=== PATIENT | female | born 1970 | race American Indian/Alaskan Native ===

== ENCOUNTER 2017-04-26 23:36 | Emergency (ER) | payer SELFPAY ==
[2017-04-26 23:41] VITALS: BMI 18.4
[2017-04-26 23:43] VITALS: BP 105/69; TEMP 99.3
[2017-04-26 23:47] VITALS: PULSE 84; RESP 17; O2SAT 95
--- NOTE | 2017-04-27 00:16 | ED PDOC ---
Arrival/HPI - General Historian: Patient <Saira Bustos - Last Filed: 04/27/17 00:33> <Jason Taylor - Last Filed: 04/27/17 00:49> - General Chief Complaint: Finger,Hand,&Wrist Time Seen by Provider: 04/27/17 00:06 - History of Present Illness Narrative History of Present Illness (Text): 04/27/17 00:11 46yo female present with complaint of pain to her left 2nd MCP. States she is on methadone and was sleepy, while sitting on a toilet seat this morning, and fell while standing up. states she tried to break her fall, by placing her left hand on the floor. She did not take any medication for the pain. denies any other complaint. (Saira Bustos) Past Medical History - Provider Review Nursing Documentation Reviewed: Yes - Reproductive Currently : No - Cardiac Hx Cardiac Disorders: No - Pulmonary Hx Respiratory Disorders: No - Neurological Hx Neurological Disorder: No - HEENT Hx HEENT Disorder: No - Renal Hx Renal Disorder: No - Endocrine/Metabolic Hx Endocrine Disorders: No - Hematological/Oncological Hx Blood Disorders: No - Integumentary Hx Dermatological Disorder: No - Musculoskeletal/Rheumatological Hx Musculoskeletal Disorders: No - Gastrointestinal Hx Gastrointestinal Disorders: No - Genitourinary/Gynecological Hx Genitourinary Disorders: No - Psychiatric Hx Psychophysiologic Disorder: No Hx Substance Use: Yes (heroin) - Surgical History Hx Cholecystectomy: Yes - Anesthesia Hx Anesthesia: Yes <Saira Bustos - Last Filed: 04/27/17 00:33> Family/Social History - Physician Review Nursing Documentation Reviewed: Yes Family/Social History: Unknown Family HX Smoking Status: Current Some Days Smoker Hx Alcohol Use: Yes Frequency of alcohol use: Socially Hx Substance Use: Yes (heroin) <Saira Bustos - Last Filed: 04/27/17 00:33> Allergies/Home Meds <Saira Bustos - Last Filed: 04/27/17 00:33> <Jason Taylor - Last Filed: 04/27/17 00:49> Allergies/Adverse Reactions: Allergies No Known Allergies Allergy (Verified 04/26/17 23:41) Home Medications: Home Meds Medication Instructions Recorded Confirmed Methadone [Methadose] 50 mg PO DAILY 04/26/17 04/26/17 Review of Systems - Physician Review All systems were reviewed & negative as marked: Yes - Review of Systems Constitutional: Normal Eyes: Normal ENT: Normal Respiratory: Normal Cardiovascular: Normal Gastrointestinal: Normal Genitourinary Female: Normal Musculoskeletal: Arthralgias (Left hand) Skin: Normal Neurological: Normal Endocrine: Normal Hemo/Lymphatic: Normal Psychiatric: Normal <Saira Bustos - Last Filed: 04/27/17 00:33> Physical Exam Vital Signs Reviewed: Yes Temperature: Afebrile Blood Pressure: Normal Pulse: Regular Respiratory Rate: Normal Appearance: Positive for: Well-Appearing, Non-Toxic, Comfortable Pain Distress: None Mental Status: Positive for: Alert and Oriented X 3 - Systems Exam Head: Present: Atraumatic, Normocephalic Pupils: Present: PERRL Extroacular Muscles: Present: EOMI Conjunctiva: Present: Normal Mouth: Present: Moist Mucous Membranes Neck: Present: Normal Range of Motion Respiratory/Chest: Present: Clear to Auscultation, Good Air Exchange. No: Respiratory Distress, Accessory Muscle Use Cardiovascular: Present: Regular Rate and Rhythm, Normal S1, S2. No: Murmurs Abdomen: Present: Normal Bowel Sounds. No: Tenderness, Distention, Peritoneal Signs Back: Present: Normal Inspection Upper Extremity: Present: Tenderness (Left 2nd MCP), Swelling (Left 2nd MCP), Neurovascularly Intact. No: Cyanosis, Edema, Normal ROM (Limited on flexion of left 2nd finger), Deformity Lower Extremity: Present: Normal Inspection. No: Edema Neurological: Present: GCS=15, CN II-XII Intact, Speech Normal Skin: Present: Warm, Dry, Normal Color. No: Rashes Psychiatric: Present: Alert, Oriented x 3, Normal Insight, Normal Concentration <Saira Bustos A - Last Filed: 04/27/17 00:33> Vital Signs Temp Pulse Resp BP Pulse Ox 04/26/17 23:43 99.3 F 84 17 105/69 95 Medical Decision Making <Saira Bustos - Last Filed: 04/27/17 00:33> <Jason Taylor - Last Filed: 04/27/17 00:49> ED Course and Treatment: 04/27/17 00:33 Left hand xray - No acute fracture noted José Miguel wrap applied. Result DW the pt. DC home with a rx of ibuprofen 600mg. Advised to apply ice to area and f/u with her PMD. (Saira Bustos) - RAD Interpretation Radiology Orders: 04/27/17 00:06 HAND LEFT 3 VIEWS ROUTINE [RAD] Stat - Medication Orders Current Medication Orders: Discontinued Medications Ibuprofen (Motrin Tab) 600 mg PO STAT STA Stop: 04/27/17 00:26 Last Admin: 04/27/17 00:36 Dose: 600 mg MAR Pain/Vitals Document 04/27/17 00:36 BRITTA (Rec: 04/27/17 00:36 [place] [facility] [id number] Pain Reassessment Is This A Pain ReAssessment? Yes Sleep Is patient sleeping during reassessment? No Presence of Pain Presence of Pain Yes Location Left, Right or Bilateral Left Pain Location Body Site Hand - PA / [employer] / Resident Statement / has reviewed & agrees with the documentation as recorded. / has examined the patient and agrees with the treatment plan. <Jason Taylor - Last Filed: 04/27/17 00:49> Disposition/Present on Arrival - Present on Arrival Any Indicators Present on Arrival: No History of DVT/PE: No History of Uncontrolled Diabetes: No Urinary Catheter: No History of Decub. Ulcer: No History Surgical Site Infection Following: None - Disposition Have Diagnosis and Disposition been Completed?: Yes Disposition Time: 12:35 Patient Plan: Discharge <Saira Bustos - Last Filed: 04/27/17 00:33> <Jason Taylor - Last Filed: 04/27/17 00:49> - Disposition Diagnosis: Hand sprain Disposition: HOME/ ROUTINE Condition: STABLE Discharge Instructions (ExitCare): Hand Sprain (ED) Additional Instructions: Follow up with your doctor Apply ice to area Return to ED for any new symptoms Prescriptions: Ibuprofen [Motrin Tab] 600 mg PO Q6 #20 tab Referrals: Lazaro Gardner DO [Staff Provider] - Follow up with primary Forms: [employer] (Irish)
--- NOTE | 2017-04-27 08:36 | RAD ---
PROCEDURE: Left Hand Radiographs. HISTORY: hand pain s/p trauma COMPARISON: None. FINDINGS: BONES: . No fracture. JOINTS: . No osteoarthritic changes. The 2nd proximal interphalangeal joint on all available images is held in mild flexion -clinical history is unable to extend this digit. Flexion persisting on all images - 5th digit -DIP joint also SOFT TISSUES: Normal. OTHER FINDINGS: None. IMPRESSION: No fracture or dislocation Persistent flexion positioning - 2nd and 5th digits -.
== END 2017-04-27 01:10 | disposition home or self-care (01) ==
LOC: MERGE 23:36 → ED 23:36
DX: S63.92XA Sprain of unspecified part of left wrist and hand, initial encounter (principal); W18.11XA Fall from or off toilet without subsequent striking against object, initial encounter

== ENCOUNTER 2018-04-05 08:17 | Emergency (ER) | payer MEDICAID ==
[2018-04-05 08:26] VITALS: BMI 22.1
--- NOTE | 2018-04-05 09:00 | ED PDOC ---
Arrival/HPI - General Chief Complaint: Back Pain Time Seen by Provider: 04/05/18 08:29 Historian: Patient - History of Present Illness Narrative History of Present Illness (Text): 04/05/18 08:58 A 47 year old female, whose past medical history includes substance abuse (heroin) and cholecystectomy, presents to the emergency department complaining of worsening, non-radiating lower back pain for 2 days. Patient reports she has back pain for approximately 1 year and it was bearable. However, starting 2 days ago, back pain has worsened and patient was unable to ambulate. Patient walked here to the ER using a cane. Patient denies any injury/trauma, or any other complaints at this time. Also, patient mentions she has never had imaging performed on her back. No PMD Time/Duration: < week (2 days) Symptom Onset: Sudden Symptom Course: Unchanged, Worsening Past Medical History - Provider Review Nursing Documentation Reviewed: Yes - Cardiac Hx Cardiac Disorders: No - Pulmonary Hx Respiratory Disorders: No - Neurological Hx Neurological Disorder: No - HEENT Hx HEENT Disorder: No - Renal Hx Renal Disorder: No - Endocrine/Metabolic Hx Endocrine Disorders: No - Hematological/Oncological Hx Blood Disorders: No - Integumentary Hx Dermatological Disorder: No - Musculoskeletal/Rheumatological Hx Musculoskeletal Disorders: No - Gastrointestinal Hx Gastrointestinal Disorders: No - Genitourinary/Gynecological Hx Genitourinary Disorders: No - Psychiatric Hx Psychophysiologic Disorder: No Hx Substance Use: Yes (heroin) - Surgical History Hx Cholecystectomy: Yes - Anesthesia Hx Anesthesia: Yes Family/Social History - Physician Review Nursing Documentation Reviewed: Yes Family/Social History: No Known Family HX Smoking Status: Current Some Days Smoker Hx Alcohol Use: Yes Hx Substance Use: Yes (heroin) Allergies/Home Meds Allergies/Adverse Reactions: Allergies No Known Allergies Allergy (Verified 04/05/18 08:26) Home Medications: Home Meds Medication Instructions Recorded Confirmed Methadone [Methadose] 50 mg PO DAILY 04/26/17 04/05/18 Review of Systems - Physician Review All systems were reviewed & negative as marked: Yes - Review of Systems Constitutional: absent: Other (no injury/trauma) Musculoskeletal: Back Pain (lower region) Physical Exam - Physical Exam Narrative Physical Exam (Text): Gen: VS reviewed, alert, well developed, well nourished, nontoxic, mild distress. ENT: normal pharynx. Eye: EOMI, PERRL. Neck: no JVD, supple, no adenopathy. Back: questionable tenderness to right lower back region near SI joint area. CV: regular rate, regular rhythm, no rubs, no murmur, no gallops, S1, S2, pulses equal and strong. Pulm: no distress, clear to auscultation, no wheeze, no rhonchi, breath sounds equal, no rales. Abd: soft, nontender, no guarding, no rebound, no rigidity, normal bowel sounds. Ext: no edema. Skin: good color, no rash, no cyanosis. Psych: responds appropriately to questions, normal affect. Neuro: oriented x 3, CN2-12 intact grossly, motor intact, sensation intact. Vital Signs Reviewed: Yes Vital Signs Temp Pulse Resp BP Pulse Ox 04/05/18 08:39 99.3 F 83 19 129/93 H 97 Temperature: Afebrile Blood Pressure: Normal Pulse: Regular Respiratory Rate: Normal Appearance: Positive for: Well-Appearing, Non-Toxic, Comfortable Pain Distress: None Mental Status: Positive for: Alert and Oriented X 3 Medical Decision Making ED Course and Treatment: 04/05/18 09:00 Impression: 47 year old female with lower back pain. Physical exam shows questionable tenderness to right lower back region near SI joint area; no other acute findings on examination. Plan: -- POC Urine Test -- Tylenol -- Flexeril -- Decadron Inj -- Toradol -- Lumbar Spinal X-Ray -- Sacroiliac Joints X-Ray -- Reassess and disposition Progress Notes: 04/05/18 10:22 patient reports improvement in her low back pain. she is now able to move around and function. patient is stable for dc and pcp follow up. - RAD Interpretation Narrative RAD Interpretations (Text): 04/05/2018 10:58 Sacroiliac Joints X-Ray IMPRESSION: Unremarkable radiographs of the sacrum and sacroiliac joints. Dictator: Dimitri Bernard MD Radiology Orders: 04/05/18 08:45 LS SPINE WITH OBL > 18 YRS OLD [RAD] Stat 04/05/18 08:46 SACROILIAC JOINTS [RAD] Stat - Medication Orders Current Medication Orders: Discontinued Medications Acetaminophen (Tylenol 325mg Tab) 975 mg PO STAT STA Stop: 04/05/18 08:48 Cyclobenzaprine HCl (Flexeril) 5 mg PO STAT STA Stop: 04/05/18 08:48 Dexamethasone (Decadron Inj) 10 mg IM STAT STA Stop: 04/05/18 08:48 Ketorolac Tromethamine (Toradol) 60 mg IM STAT STA Stop: 04/05/18 08:48 - Scribe Statement The provider has reviewed the documentation as recorded by the Renay Bearden Provider Dagmaribe Attestation: All medical record entries made by the Dagmaribflores were at my direction and personally dictated by me. I have reviewed the chart and agree that the record accurately reflects my personal performance of the history, physical exam, medical decision making, and the department course for this patient. I have also personally directed, reviewed, and agree with the discharge instructions and disposition. Disposition/Present on Arrival - Present on Arrival Any Indicators Present on Arrival: No History of DVT/PE: No History of Uncontrolled Diabetes: No Urinary Catheter: No History of Decub. Ulcer: No History Surgical Site Infection Following: None - Disposition Have Diagnosis and Disposition been Completed?: Yes Diagnosis: Low back pain Disposition: HOME/ ROUTINE Disposition Time: 10:23 Patient Plan: Discharge Condition: STABLE Discharge Instructions (ExitCare): Low Back Pain (DC) Additional Instructions: Return for any new or worsening symptoms especially fever greater than 100.4, worsening pain, numbness or weakness in the legs or difficulty urinating or bowel movement. SHERRI SCHAFFER, thank you for letting us take care of you today. Your provider was Dr. Keaton Al and you were treated for low back pain. The emergency medical care you received today was directed at your acute symptoms. If you were prescribed any medication, please fill it and take as directed. It may take several days for your symptoms to resolve. Return to the Emergency Department if your symptoms worsen, do not improve, or if you have any other problems. Please contact your doctor or call one of the physicians/clinics you have been referred to that are listed on the Patient Visit Information form that is included in your discharge packet. Bring any paperwork you were given at discharge with you along with any medications you are taking to your follow up visit. Our treatment cannot replace ongoing medical care by a primary care provider outside of the emergency department. Thank you for allowing the [facility] team to be part of your care today. If you had an X-Ray or CT scan: A Radiologist will review the ED reading if any change in treatment is needed we will contact you. If you had a blood, urine, or wound culture: It will take several days for the results, if any change in treatment is needed we will contact you. If you had an STI test: It will take 48 hours for the results. Please call after 1 week if you have not heard back. Prescriptions: Cyclobenzaprine [Flexeril] 5 mg PO TID #15 tab Ketorolac Tromethamine [Toradol] 10 mg PO Q6H 5 Days #20 tab Prednisone [Deltasone] 20 mg PO DAILY 5 Days #12 tablet Forms: [employer] (Mosotho), SCHOOL NOTE
[2018-04-05 10:54] VITALS: BP 130/70; PULSE 89; RESP 18; TEMP 98.9; O2SAT 98
--- NOTE | 2018-04-05 11:02 | RAD ---
Date of service: 04/05/2018 PROCEDURE: Radiographs of the Sacrum and Coccyx HISTORY: pain, right SI joint COMPARISON: None available. TECHNIQUE: Frontal and oblique views of the sacrum FINDINGS: BONES: Sacrum and sacroiliac joints are unremarkable. No focal abnormalities or bony lesions. SACROILIAC JOINTS: Unremarkable. OTHER FINDINGS: None. IMPRESSION: Unremarkable radiographs of the sacrum and sacroiliac joints..
--- NOTE | 2018-04-05 11:04 | RAD ---
Date of service: 04/05/2018 PROCEDURE: Radiographs of the Lumbar Spine. HISTORY: low back pain,right side COMPARISON: No prior. FINDINGS: BONES: Normal alignment. No listhesis. No fracture. DISC SPACES: Unremarkable. OTHER FINDINGS: Constipation without fecal impaction or obstruction. IMPRESSION: No significant or acute findings to account for/ related to the clinical presentation.
== END 2018-04-05 10:40 | disposition home or self-care (01) ==
LOC: ED 08:17
DX: M54.5 Low back pain (principal)
CPT/HCPCS: 72110; 72202; 96372; 99282; J1100; J1885

== ENCOUNTER 2018-04-18 08:19 | Emergency (ER) | payer MEDICAID, OTHER ==
[2018-04-18 08:25] VITALS: BMI 23.2
[2018-04-18 08:33] VITALS: RESP 18; TEMP 98.6
--- NOTE | 2018-04-18 09:14 | ED PDOC ---
Arrival/HPI - General Chief Complaint: Back Pain Time Seen by Provider: 04/18/18 08:41 Historian: Patient - History of Present Illness Narrative History of Present Illness (Text): 04/18/18 09:08 47 year old female whose past medical history includes substance abuse (heroin), cholelithiasis, and cholecystectomy presents to the emergency department complaining of right sided lower back pain, intermittently for the past year. She states that her pain has worsened over the past few days, she hasn't been able to ambulate as well. No fall or trauma. Patient reports walking to the emergency department with her cane. She notes she was recently seen in the emergency department on 04/05/18 for similar complaints, she was administered medication and on revaluation her pain improved and she was discharged home. Patient denies any loss of bowel or bladder function, dysuria, fever, cough, shortness of breath, vomiting, nausea, diarrhea, headache, dizziness, and or any other complaint. No IVDU currently or diabetes. Time/Duration: Other (1 year, intermittently) Symptom Course: Intermittent Activities at Onset: Light Context: Home Past Medical History - Provider Review Nursing Documentation Reviewed: Yes - Infectious Disease Hx of Infectious Diseases: None - Cardiac Hx Cardiac Disorders: No - Pulmonary Hx Respiratory Disorders: No - Neurological Hx Neurological Disorder: No - HEENT Hx HEENT Disorder: No - Renal Hx Renal Disorder: No - Endocrine/Metabolic Hx Endocrine Disorders: No - Hematological/Oncological Hx Blood Disorders: No - Integumentary Hx Dermatological Disorder: No - Musculoskeletal/Rheumatological Hx Musculoskeletal Disorders: No Hx Back Pain: Yes (1 year) - Gastrointestinal Hx Gastrointestinal Disorders: No - Genitourinary/Gynecological Hx Genitourinary Disorders: No - Psychiatric Hx Psychophysiologic Disorder: No Hx Substance Use: Yes (heroin) - Surgical History Hx Cholecystectomy: Yes - Anesthesia Hx Anesthesia: Yes Family/Social History - Physician Review Nursing Documentation Reviewed: Yes Family/Social History: No Known Family HX Smoking Status: Current Some Days Smoker Hx Alcohol Use: Yes Hx Substance Use: Yes (heroin) Allergies/Home Meds Allergies/Adverse Reactions: Allergies No Known Allergies Allergy (Verified 04/05/18 08:26) Home Medications: Home Meds Medication Instructions Recorded Confirmed Methadone [Methadose] 50 mg PO DAILY 04/26/17 04/18/18 Review of Systems - Physician Review All systems were reviewed & negative as marked: Yes - Review of Systems Constitutional: absent: Fevers Eyes: absent: Vision Changes, Eye Pain ENT: absent: Hearing Changes, Tinnitus, Sore Throat Respiratory: absent: SOB, Cough Cardiovascular: absent: Chest Pain Gastrointestinal: absent: Abdominal Pain, Diarrhea, Nausea, Vomiting Genitourinary Female: absent: Dysuria, Frequency, Hematuria, Urine Output Changes, Vaginal Bleeding, Vaginal Discharge Musculoskeletal: Back Pain (right sided lower back pain ). absent: Arthralgias, Neck Pain, Joint Swelling, Myalgias Skin: absent: Rash Neurological: absent: Headache, Dizziness Physical Exam Vital Signs Reviewed: Yes Vital Signs Temp Pulse Resp BP Pulse Ox 04/18/18 08:19 98.6 F 79 18 99/86 L 99 Temperature: Afebrile Blood Pressure: Normal Pulse: Regular Respiratory Rate: Normal Appearance: Positive for: Well-Appearing, Non-Toxic, Comfortable Pain Distress: None Mental Status: Positive for: Alert and Oriented X 3 - Systems Exam Head: Present: Atraumatic, Normocephalic Pupils: Present: PERRL Extroacular Muscles: Present: EOMI Conjunctiva: Present: Normal Mouth: Present: Moist Mucous Membranes Neck: Present: Normal Range of Motion Respiratory/Chest: Present: Clear to Auscultation, Good Air Exchange. No: Respiratory Distress, Accessory Muscle Use Cardiovascular: Present: Regular Rate and Rhythm, Normal S1, S2. No: Murmurs Abdomen: No: Tenderness, Distention, Peritoneal Signs Back: Present: Paraspinal Tenderness. No: CVA Tenderness, Midline Tenderness Upper Extremity: Present: Normal Inspection. No: Cyanosis, Edema Lower Extremity: Present: Normal Inspection. No: Edema Neurological: Present: GCS=15, CN II-XII Intact, Speech Normal Skin: Present: Warm, Dry, Normal Color. No: Rashes Psychiatric: Present: Alert, Oriented x 3, Normal Insight, Normal Concentration Medical Decision Making ED Course and Treatment: 04/18/18 09:00 Impression: 47 year old female who presents to the emergency department complaining of right sided, lower back pain. Likely chronic back pain. No midline tenderness. No trauma or fall. No current IVDU. Pt notes stable on methadone program: taking 100 U per day currently, has not had her dose- is due to dose at 12pm at her methadone clinic. Unremarkable neuro exam. Ambulating without issue. Plan: -- Fleceril -- POC Urine test -- Lumbar spine with OBL X-ray -- Urinalysis -- Reassess and disposition Prior Visits: Notes and results from previous visits were reviewed. Patient was last seen in the emergency department on 04/05/2018 for similar complaints, was administered medication and on reassessment her pain had improved and she was discharged home. Progress Notes: Patient has no saddle anesthesia. 04/18/18 11:40 Lumbar spine with OBL X-ray reviewed, shows: IMPRESSION: There is disc degeneration with bony sclerosis and facet arthropathy at L5-S1. 04/18/18 1259 UTI: w/ back pain- ?Pyelo- will seek labs well appearing without major comorbidities, likely outpt rx: no DM2 labs unremarkable pt notes improvement of pain neuro exam remains stable w/ out signs of cauda equina. NO abd pain. clear for d/c home w/ abx, f/u and return indications: pt agreeable to plan. - Scribe Statement The provider has reviewed the documentation as recorded by the Renay Nevarez Provider Scribe Attestation: All medical record entries made by the Scribe were at my direction and personally dictated by me. I have reviewed the chart and agree that the record accurately reflects my personal performance of the history, physical exam, medical decision making, and the department course for this patient. I have also personally directed, reviewed, and agree with the discharge instructions and disposition. Disposition/Present on Arrival - Present on Arrival Any Indicators Present on Arrival: No History of DVT/PE: No History of Uncontrolled Diabetes: No Urinary Catheter: No History of Decub. Ulcer: No History Surgical Site Infection Following: None - Disposition Have Diagnosis and Disposition been Completed?: Yes Diagnosis: UTI (urinary tract infection), Pyelonephritis Disposition: HOME/ ROUTINE Disposition Time: 12:59 Condition: GOOD Discharge Instructions (ExitCare): Urinary Tract Infection, Adult (DC), Liver Function Test Additional Instructions: FOLLOW UP WITH UROLOGY AND GASTROENTEROLOGY DOCTOR AND TAKE YOUR ANTIBIOTICS. SHERRI SCHAFFER, thank you for letting us take care of you today. Your provider was Frank Cartagena and you were treated for back pain. The emergency medical care you received today was directed at your acute symptoms. If you were prescribed any medication, please fill it and take as directed. It may take several days for your symptoms to resolve. Return to the Emergency Department if your symptoms worsen, do not improve, or if you have any other problems. Please contact your doctor or call one of the physicians/clinics you have been referred to that are listed on the Patient Visit Information form that is included in your discharge packet. Bring any paperwork you were given at discharge with you along with any medications you are taking to your follow up visit. Our treatment cannot replace ongoing medical care by a primary care provider outside of the emergency department. Thank you for allowing the [facility] team to be part of your care today. If you had an X-Ray or CT scan: A Radiologist will review the ED reading if any change in treatment is needed we will contact you. If you had a blood, urine, or wound culture: It will take several days for the results, if any change in treatment is needed we will contact you. If you had an STI test: It will take 48 hours for the results. Please call after 1 week if you have not heard back. Prescriptions: RX: Cefpodoxime [Vantin] 200 mg PO BID 10 Days #20 tab Referrals: Pito Vale MD [Staff Provider] - Follow up with primary Joss Moreno DO [Staff Provider] - Follow up with primary Forms: [employer] (Macanese), WORK NOTE
[2018-04-18 09:46] LABS: PH,URINE 6.5 (4.7-8.0); URINE APPEARANCE SL CLOUDY (CLEAR); URINE BILIRUBIN NEGATIVE (NEGATIVE); URINE BLOOD NEGATIVE (NEGATIVE); URINE COLOR YELLOW (YELLOW); URINE GLUCOSE (UA) NEGATIVE (NEGATIVE); URINE LEUKOCYTE ESTERASE LARGE Leu/uL (NEGATIVE); URINE PROTEIN NEGATIVE mg/dL (<30 mg/dL); URINE UROBILINOGEN 0.2 E.U./dL (<1 E.U./dL)
[2018-04-18 09:59] LABS: URINE BACTERIA MANY (NEG); URINE RBC NEGATIVE /hpf (0-2); URINE WBC TNTC /hpf (0-6)
--- NOTE | 2018-04-18 10:23 | RAD ---
Date of service: 04/18/2018 PROCEDURE: Radiographs of the Lumbar Spine. HISTORY: lumbar pain COMPARISON: No prior. FINDINGS: BONES: Normal alignment. No listhesis. No fracture. DISC SPACES: There is disc degeneration with bony sclerosis and facet arthropathy at L5-S1. OTHER FINDINGS: None. IMPRESSION: There is disc degeneration with bony sclerosis and facet arthropathy at L5-S1.
[2018-04-18 11:22] LABS: BASO # 0.03 K/mm3 (0.0-2.0); BASO % 0.4 % (0.0-3.0); EOS # 0.2 (0.0-0.7); EOS % 2.6 % (1.5-5.0); GRAN # 4.53 (1.4-6.5); GRAN % 64.6 % (50.0-68.0); LYMPH # 1.9 (1.2-3.4); LYMPH % 27.5 % (22.0-35.0); MEAN CELL VOLUME 88.9 fl (80.0-105.0); MEAN CORPUSCULAR HEMOGLOBIN 27.2 pg (25.0-35.0); MEAN CORPUSCULAR HGB CONC 30.6 g/dl (31.0-37.0); MEAN PLATELET VOLUME 8.7 fl (7.0-11.0); MONO # 0.3 (0.1-0.6); MONO % 4.9 % (1.0-6.0); RBC 4.04 10^6/uL (3.5-6.1); RED CELL DISTRIBUTION WIDTH 13.5 % (11.5-14.5)
[2018-04-18] MEDS ORDERED: cefTRIAXone 1 gm 1 GM/100 ML BAG IVPB SCH (11:45)
[2018-04-18 12:55] LABS: ALBUMIN 3.5 g/dL (3.0-4.8); BLOOD UREA NITROGEN 12 mg/dL (7-21); CALCIUM 8.9 mg/dL (8.4-10.5); GFR NON-AFRICAN AMERICAN > 60
[2018-04-18 12:56] LABS: ALB/GLOB RATIO 0.9 (1.1-1.8); ALT/SGPT 148 U/L (7-56); AST/SGOT 362 U/L (14-36)
[2018-04-18 13:14] VITALS: BP 111/77; PULSE 62; O2SAT 100
== END 2018-04-18 13:05 | disposition home or self-care (01) ==
LOC: ED 08:19
DX: N12 Tubulo-interstitial nephritis, not specified as acute or chronic (principal)
CPT/HCPCS: 72110; 80053; 81001; 85025; 87086; 96365; 96372; 99283; J0696; J1885